=== PATIENT | male | born 1980 | race African-American/Black ===

== ENCOUNTER 2020-08-12 22:28 | Emergency (ER) | payer SELFPAY ==
[~2020-08-12] VITALS: Ht 170.2 cm; Wt 81.0 kg
[2020-08-12 23:13] LABS: BASO % 1 % (0-3); EOS # 0.2 x10^3/uL (0.0-0.7); EOS % 3 % (0-3); HEMATOCRIT 44.8 % (39.0-53.0); HEMOGLOBIN 14.8 g/dL (13.0-17.5); LYMPH % 37 % (24-48); MEAN CORPUSCULAR HEMOGLOBIN 27 pg (25-35); MEAN CORPUSCULAR HGB CONC 33 g/dL (31-37); MEAN CORPUSCULAR VOLUME 82 fL (79-100); MONO % 12 % (0-9); NEUT # 3.7 x10^3uL (1.8-7.7); NEUT % 47 % (31-73); PLATELET COUNT 358 x10^3/uL (140-400); RED BLOOD COUNT 5.46 x10^6/uL (4.30-5.70); RED CELL DISTRIBUTION WIDTH 14.4 % (11.5-14.5); WHITE BLOOD COUNT 7.9 x10^3/uL (4.0-11.0)
--- NOTE | 2020-08-12 23:14 | PHYS DOC ---
Past History Past Medical History: Anxiety, Depression, Schizophrenia Additional Past Medical Histor: Suicidal Ideation Past Surgical History: No Surgical History Smoking: Cigarettes Alcohol Use: Occasionally Drug Use: Cocaine, Marijuana, Methamphetamine General Adult EDM: Chief Complaint: SUICIDAL IDEATION HPI: HPI: 40-year-old male with past medical history of schizophrenia, depression, anxiety and prior suicidal ideation presents via EMS with report of 1 month long history of increased thoughts of wanting to hurt himself. Patient reports he was recently admitted at [facility] for similar thoughts and was started on medications. Patient reports however he was brought to [place] on outstanding warrants for his arrest and ended up serving time in local [facility] correction. Patient reports he is now off of all his medications. Reports he has been self-medicating with illicit drugs including cocaine and methamphetamines as well as abusing alcohol. Patient reports he last used anything 2 days ago. Patient reports he also is experiencing some paranoia in which he thinks people are following him. Patient also reports some auditory hallucinations. Patient reports his thoughts of hurting himself have progressed to the point tonight where he felt concern that he might hurt himself. Patient reports he does not have a specific plan but thinks he "might take out his jugular ". Patient denies known exposure to COVID-19. Review of Systems: Review of Systems: Constitutional: Denies fever or chills Eyes: Denies redness or eye pain HENT: Denies nasal congestion or sore throat Respiratory: Denies cough or shortness of breath Cardiovascular: Denies chest pain or palpitations GI: Denies abdominal pain, nausea, or vomiting : Denies dysuria or hematuria Musculoskeletal: Denies back pain or joint pain Integument: Denies rash or skin lesions Neurologic: Denies headache, focal weakness or sensory changes Complete systems were reviewed and found to be within normal limits, except as documented in this note. Physical Exam: PE: Constitutional: Well developed, well nourished, no acute distress, non-toxic appearance HENT: Normocephalic, atraumatic Eyes: PERRL, EOMI, conjunctiva normal, no discharge, no nystagmus Neck: Normal range of motion, no tenderness, supple Lungs & Thorax: No respiratory distress, equal chest rise and fall Skin: Warm, dry, no erythema, no rash Extremities: No tenderness, ROM intact, no edema Neurologic: Alert and oriented X 3, normal motor function, normal sensory function, no focal deficits noted Psychologic: Affect anxious, reports suicidal ideation with plan, reports auditory hallucinations EKG: EKG: [] Radiology/Procedures: Radiology/Procedures: [] Course & Med Decision Making: Course & Med Decision Making Pertinent Lab studies reviewed. (See chart for details) Patient with possible history of schizophrenia, depression, anxiety and prior suicidal ideation presents with 1 month long history of progressive thoughts of wanting to hurt himself. Patient reports he had been off his medications after being released from correction. Patient reports history of self-medicating with methamphetamines, cocaine, and alcohol. Patient reports last used 2 days ago. Patient neurologically intact. Labs obtained and posted to chart. Patient medically cleared for psychiatric evaluation. Mary from psychiatric assessment team presented to the ER for evaluation. Recommendation for discharge to [facility] for further psychiatric treatment and stabilization. Patient stable for discharge with transfer to [facility]. Discussed findings and plan with patient, who acknowledges understanding and agreement. Lincoln Disclaimer: Lincoln Disclaimer: This electronic medical record was generated, in whole or in part, using a voice recognition dictation system. Departure Departure: Impression: Primary Impression: Suicidal ideation Additional Impression: Paranoid schizophrenia Disposition: 65 DC/TRF TO PSYCH HOSP ([facility]) Condition: STABLE Patient Instructions: Paranoia, Schizophrenia, Suicidal Feelings, How to Help Yourself Additional Instructions: Present directly to [facility] for further psychiatric care and treatment. BRISSA BUENO DO Aug 12, 2020 23:14
[2020-08-12 23:23] LABS: CALCIUM 8.4 mg/dL (8.5-10.1); CREATININE 1.5 mg/dL (0.7-1.3); GFR 51.3; POTASSIUM 3.7 mmol/L (3.5-5.1)
[2020-08-12 23:29] LABS: ALBUMIN 3.4 g/dL (3.4-5.0); ALBUMIN/GLOBULIN RATIO 1.1 (1.0-1.7); MAGNESIUM 2.2 mg/dL (1.8-2.4); TOTAL BILIRUBIN 0.2 mg/dL (0.2-1.0); TOTAL PROTEIN 6.6 g/dL (6.4-8.2)
[2020-08-12 23:31] LABS: ACETAMIN < 2.0 mcg/mL (10-30); ETHANOL < 10 mg/dL (0-10); SALIC < 2.8 mg/dL (2.8-20.0)
[2020-08-13 01:27] VITALS: BP 117/73
== END 2020-08-13 01:27 ==
LOC: ER 22:28
DX: R45.851 Suicidal ideations (principal); F20.0 Paranoid schizophrenia; F41.9 Anxiety disorder, unspecified; F17.210 Nicotine dependence, cigarettes, uncomplicated; F32.9 Major depressive disorder, single episode, unspecified; Z20.822 Contact with and (suspected) exposure to COVID-19
CPT/HCPCS: 36415; 80053; 80329; 83735; 85025; 85610; 85730; 87426; 99285; G0480; U0003; C9803

== ENCOUNTER 2020-09-08 10:23 | Emergency (ER) | payer SELFPAY ==
[~2020-09-08] VITALS: Ht 175.3 cm; Wt 77.5 kg
[2020-09-08] MEDS ORDERED: IV NORMAL SALINE 1,000ML 1,000 ML IV ONE (10:45)
--- NOTE | 2020-09-08 10:59 | PHYS DOC ---
Past History Past Medical History: Anxiety, Depression, Schizophrenia Additional Past Medical Histor: Suicidal Ideation Past Surgical History: No Surgical History Smoking: Cigarettes Alcohol Use: Occasionally Drug Use: Cocaine, Marijuana, Methamphetamine Adult General Chief Complaint Chief Complaint: SUICIDAL IDEATION HPI HPI Patient is a 40m with a known past medical history of anxiety and depression presents emergency department for suicidal ideation. Patient states that last night he was going up as well as on his antidepressants and did not take the rest of his antidepressants. Patient does not know how many but says that he took "enough." States that shortly afterwards he had an episode of vomiting is not sure how much he actually ingested. Patient does not know the actual dosing or strength. Went to see his psychiatrist for a refill today with a centimeter instead. Currently denying any nausea, vomiting, fever, chills, chest pain or shortness of breath. Review of Systems Review of Systems Constitutional: Denies fever or chills [] Eyes: Denies change in visual acuity, redness, or eye pain [] HENT: Denies nasal congestion or sore throat [] Respiratory: Denies cough or shortness of breath [] Cardiovascular: No additional information not addressed in HPI [] GI: Denies abdominal pain, nausea, vomiting, bloody stools or diarrhea [] : Denies dysuria or hematuria [] Musculoskeletal: Denies back pain or joint pain [] Integument: Denies rash or skin lesions [] Neurologic: Denies headache, focal weakness or sensory changes [] Endocrine: Denies polyuria or polydipsia [] All other systems were reviewed and found to be within normal limits, except as documented in this note. Current Medications Current Medications Current Medications Medications (Trade) Dose Ordered Sig/Beto Start Time Stop Time Status Last Admin Dose Admin Lorazepam (Ativan Inj) 1 mg 1X ONCE 09/08/20 10:45 09/08/20 10:46 DC Sodium Chloride 1,000 ml @ 1,000 mls/hr 1X ONCE 09/08/20 10:45 09/08/20 11:44 Allergies Allergies Allergies Coded Allergies Type Severity Reaction Last Updated Verified No Known Allergies Allergy Unknown 08/12/20 Yes Physical Exam Physical Exam Constitutional: Well developed, well nourished, no acute distress, non-toxic appearance. [] HENT: Normocephalic, atraumatic, bilateral external ears normal, oropharynx moist, no oral exudates, nose normal. [] Eyes: PERRLA, EOMI, conjunctiva normal, no discharge. [] Neck: Normal range of motion, no tenderness, supple, no stridor. [] Cardiovascular:Heart rate regular rhythm, no murmur [] Lungs & Thorax: Bilateral breath sounds clear to auscultation [] Abdomen: Bowel sounds normal, soft, no tenderness, no masses, no pulsatile masses. [] Skin: Warm, dry, no erythema, no rash. [] Back: No tenderness, no CVA tenderness. [] Extremities: No tenderness, no cyanosis, no clubbing, ROM intact, no edema. [] Neurologic: Alert and oriented X 3, normal motor function, normal sensory function, no focal deficits noted. [] Psychologic: Affect normal, judgement normal, mood normal. [] EKG EKG [] Radiology/Procedures Radiology/Procedures [] Heart Score Risk Factors: Risk Factors: DM, Current or recent (<one month) smoker, HTN, HLP, family history of CAD, obesity. Risk Scores: Risk Factors: DM, Current or recent (<one month) smoker, HTN, HLP, family history of CAD, obesity. Course & Med Decision Making Course & Med Decision Making Pertinent Labs and Imaging studies reviewed. (See chart for details) 40M presenting with possible medication overdose and suicidal ideation. Will obtain full lab and workup to and if medically clear plan for PAT evaluation. PAt team has evaluated patient and plan for admission to [facility] under [place]. Lincoln Disclaimer Dragon Disclaimer This electronic medical record was generated, in whole or in part, using a voice recognition dictation system. Departure Departure: Impression: Primary Impression: Suicidal ideation Disposition: 01 DC HOME SELF CARE/HOMELESS Condition: GOOD Referrals: PCP,NO (PCP) Patient Instructions: Depression, Adult Additional Instructions: EMERGENCY DEPARTMENT GENERAL DISCHARGE INSTRUCTIONS Thank you for coming to [facility] Emergency Department (ED) today and trusting us with you care. We trust that you had a positive experience in our Emergency Department. If you wish to speak to the department management, you may call the Director at [phone]. YOUR FOLLOW UP INSTRUCTIONS ARE FOLLOWS: 1. Do you have a private Doctor? If you do not have a private doctor, please ask for a resource list of physicians or clinics that may be able to assist you with follow up care. 2. The Emergency Physicain has interpreted your x-rays. The X-Ray specialist will also review them. If there is a change in the findings, you will be notified in 48 hours when at all possible. 3. A lab test or culture has been done, your results will be reviewed and you will be notified if you need a change in treatment. ADDITIONAL INSTRUCTIONS AND INFORMATION: 1. Your care today has been supervised by a physician who is specially trained in emergency care. Many problems require more than one evaluation for a complete diagnosis and treatment. We recommend that you schedule your follow up appointment as recommended to ensure complete treatment of you illness or injury. If you are unable to obtain follow up care and continue to have a problem, or if your condition worsens, we recommend that you return to the ED. 2. We are not able to safely determine your condition over the phone nor are we able to give sound medical advice over the phone. For these safety reasons, if you call for medical advice we will ask you to come to the ED for further evaluation. 3. If you have any questions regarding these discharge instructions please call the ED at [phone]. SAFETY INFORMATION: In the interest of safety, wellness, and injury prevention; we encourage you to wear your sealbelt, if you smoke; quite smoking, and we encourage family to use a protective helmet for bicycling and other sporting events that present an increased risk for head injury. IF YOUR SYMPTOMS WORSEN OR NEW SYMPTOMS DEVELOP, OR YOU HAVE CONCERNS ABOUT YOUR CONDITION; OR IF YOUR CONDITION WORSENS WHILE YOU ARE WAITING FOR YOUR FOLLOW UP APPOINTMENT; EITHER CONTACT YOUR PRIMARY CARE DOCTOR, THE PHYSICIAN WHOSE NAME AND NUMBER YOU WERE GIVEN, OR RETURN TO THE ED IMMEDIATELY. SURJIT AMOS MD Sep 08, 2020 10:59
--- NOTE | 2020-09-08 11:05 | RAD ---
EXAM: CHEST 1 VIEW History: Overdose COMPARISON: None available. TECHNIQUE: Single portable radiograph of the chest FINDINGS: The cardiac silhouette is unremarkable. The lungs are clear bilaterally. The costophrenic sulci are clear and well demarcated. IMPRESSION: No radiographic evidence of an acute cardiopulmonary process. Electronically signed by: Julio Lange MD (09/08/2020 11:03 AM) [id number]
[2020-09-08 11:59] LABS: BASO # 0.1 x10^3/uL (0.0-0.2); BASO % 1 % (0-3); EOS # 0.2 x10^3/uL (0.0-0.7); EOS % 3 % (0-3); HEMATOCRIT 44.5 % (39.0-53.0); HEMOGLOBIN 14.4 g/dL (13.0-17.5); LYMPH # 2.3 x10^3/uL (1.0-4.8); LYMPH % 31 % (24-48); MEAN CORPUSCULAR HEMOGLOBIN 27 pg (25-35); MEAN CORPUSCULAR HGB CONC 33 g/dL (31-37); MEAN CORPUSCULAR VOLUME 84 fL (79-100); MONO # 0.7 x10^3/uL (0.0-1.1); MONO % 10 % (0-9); NEUT # 4.2 x10^3uL (1.8-7.7); NEUT % 56 % (31-73); PLATELET COUNT 417 x10^3/uL (140-400); RED BLOOD COUNT 5.29 x10^6/uL (4.30-5.70); RED CELL DISTRIBUTION WIDTH 14.8 % (11.5-14.5); WHITE BLOOD COUNT 7.5 x10^3/uL (4.0-11.0)
[2020-09-08 12:08] LABS: CALCIUM 8.9 mg/dL (8.5-10.1); CREATININE 1.1 mg/dL (0.7-1.3); GFR 88.8; POTASSIUM 4.6 mmol/L (3.5-5.1)
[2020-09-08 12:14] LABS: MAGNESIUM 2.1 mg/dL (1.8-2.4)
[2020-09-08 12:19] LABS: ACETAMIN < 2.0 mcg/mL (10-30); SALIC < 2.8 mg/dL (2.8-20.0)
--- NOTE | 2020-09-08 12:34 | EKG ---
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
[2020-09-08 14:05] VITALS: BP 153/85
== END 2020-09-08 14:20 | disposition home or self-care (01) ==
LOC: ER 10:23
DX: R45.851 Suicidal ideations (principal); R11.10 Vomiting, unspecified; F20.9 Schizophrenia, unspecified; F41.9 Anxiety disorder, unspecified; F32.9 Major depressive disorder, single episode, unspecified; F17.210 Nicotine dependence, cigarettes, uncomplicated; Z20.822 Contact with and (suspected) exposure to COVID-19
CPT/HCPCS: 36415; 71045; 80048; 80329; 82140; 82550; 83735; 84484; 85025; 85610; 85730; 87426; 93005; 96361; 96374; 99285; C9803; J2060; J7030; U0003; G0480

== ENCOUNTER 2020-10-07 12:20 | Inpatient (IN) | payer SELFPAY ==
[~2020-10-07] VITALS: Ht 175.3 cm; Wt 64.8 kg
--- NOTE | 2020-10-07 12:59 | PHYS DOC ---
Past History Past Medical History: Depression, Other Additional Past Medical Histor: schizophrenia, psychosis (SURJIT AMOS MD) Past Surgical History: No Surgical History (SURJIT AMOS MD) Smoking: Cigarettes Alcohol Use: Occasionally Drug Use: Cocaine, Marijuana, Methamphetamine (SURJIT AMOS MD) Adult General Chief Complaint Chief Complaint: OVERDOSE HPI HPI Patient is a 40-year-old male presenting the emergency department concern for suicide attempt after attempted overdose and toxic ingestion. 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 This call apparently occurred at approxi mately 9 AM and EMS arrived and noted the patient was somnolent and alert and oriented x1. On my evaluation the patient is alert and oriented x2 and will intermittently states having nausea but repeatedly states that "I am fine I just want to go." After repeated questioning patient thinks that he woke up around 9:00 and thinks he took pills since that time. Patient does state he has been throwing up since then. Patient cannot tell me how much he took but does have 4 empty bottles of medications which includes 2 of 50 mg of sertraline, one of the 10 mg olanzapine and 1 of 10 mg aripiprazole. Denies any recent illness or fevers. (SURJIT AMOS MD) Review of Systems Review of Systems Constitutional: Denies fever or chills [] Eyes: Denies change in visual acuity, redness, or eye pain [] HENT: Denies nasal congestion or sore throat [] Respiratory: Denies cough or shortness of breath [] Cardiovascular: No additional information not addressed in HPI [] GI: Denies abdominal pain, nausea, vomiting, bloody stools or diarrhea [] : Denies dysuria or hematuria [] Musculoskeletal: Denies back pain or joint pain [] Integument: Denies rash or skin lesions [] Neurologic: Denies headache, focal weakness or sensory changes [] Endocrine: Denies polyuria or polydipsia [] All other systems were reviewed and found to be within normal limits, except as documented in this note. (SURJIT AMOS MD) Current Medications Current Medications Current Medications Medications (Trade) Dose Ordered Sig/Beto Start Time Stop Time Status Last Admin Dose Admin Lorazepam (Ativan Inj) 2 mg 1X ONCE 10/07/20 13:00 10/07/20 13:01 UNV Morphine Sulfate (Morphine 4mg Syringe) 4 mg 1X ONCE 10/07/20 13:00 10/07/20 13:01 UNV Ondansetron HCl (Zofran) 4 mg 1X ONCE 10/07/20 13:00 10/07/20 13:01 UNV Polyethylene Glycol (miraLAX) 17 gm 1X ONCE 10/07/20 13:00 10/07/20 13:01 UNV (SURJIT AMOS MD) Allergies Allergies Allergies Coded Allergies Type Severity Reaction Last Updated Verified No Known Allergies Allergy Unknown 08/12/20 Yes (SURJIT AMOS MD) Physical Exam Physical Exam Constitutional: Well developed, well nourished, no acute distress, non-toxic appearance. [] HENT: Normocephalic, atraumatic, bilateral external ears normal, oropharynx moist, no oral exudates, nose normal. [] Eyes: PERRLA, EOMI, conjunctiva normal, no discharge. [] Neck: Normal range of motion, no tenderness, supple, no stridor. [] Cardiovascular:Heart rate regular rhythm, no murmur [] Lungs & Thorax: Bilateral breath sounds clear to auscultation [] Abdomen: Bowel sounds normal, soft, no tenderness, no masses, no pulsatile masses. [] Skin: Warm, dry, no erythema, no rash. [] Back: No tenderness, no CVA tenderness. [] Extremities: No tenderness, no cyanosis, no clubbing, ROM intact, no edema. [] Neurologic: Alert and oriented X 3, normal motor function, normal sensory function, no focal deficits noted. [] Psychologic: Affect normal, judgement normal, mood normal. [] (SURJIT AMOS MD) Current Patient Data Vital Signs Vital Signs Date Time Temp Pulse Resp B/P (MAP) Pulse Ox O2 Delivery O2 Flow Rate FiO2 10/07/20 12:25 83 16 149/94 (112) 99 Room Air (SURJIT AMOS MD) EKG EKG [] (SURJIT AMOS MD) Radiology/Procedures Radiology/Procedures [] (SURJIT AMOS MD) Heart Score C/O Chest Pain: No Risk Factors: Risk Factors: DM, Current or recent (<one month) smoker, HTN, HLP, family history of CAD, obesity. Risk Scores: Risk Factors: DM, Current or recent (<one month) smoker, HTN, HLP, family history of CAD, obesity. (SURJIT AMOS MD) Course & Med Decision Making Course & Med Decision Making Pertinent Labs and Imaging studies reviewed. (See chart for details) 40m presented emergency department with what appears to be toxic ingestion concerning for serious overdose most concerning is a large ingestion of SSRIs. We believe that this is been done within 4 hours. Activated charcoal is no longer effective at this time however given that it happened within 4 hours and these are long lasting medications we will proceed with whole bowel irrigation. Patient also to receive IV fluids, benzos and full labs to be obtained. Patient currently stable at this time. 17:22 -patient still remains mildly somnolent but is having slightly improving mental status. Although irrigation was initiated patient has not had a bowel movement yet does be tolerating well. Labs reviewed and without any significant derangements. In addition EKG without any significant findings or QRS widening. At this time based on recommendations from poison control waiting for patient be asymptomatic and then another 6 hours before he can be medically cleared. PET team evaluation has been completed and patient will require inpatient psychiatric services. At this time will hold patient into the ER until he is medically cleared. (SURJIT AMOS MD) Course & Med Decision Making I assumed care of patient after comprehensive signout by off going physician. I reviewed entirety of medical work-up thus far. I saw patient and repeated certain aspects of history and physical exam, remains somnolent. I contacted Dr. Vasquez, hospitalist at [facility] and discussed need for admission for continued supportive care until patient metabolizes ingested SSRI and is medically cleared for inpatient psychiatric transfer due to purposeful OD attempt, Dr. Vasquez accepted patient under his care (LUDWIN HENRY DO) Dragon Disclaimer Dragon Disclaimer This electronic medical record was generated, in whole or in part, using a voice recognition dictation system. (SURJIT AMOS MD) Departure Departure: Impression: Primary Impression: Intentional SSRI (selective serotonin reuptake inhibitor) overdose Disposition: 09 ADMITTED INPT THIS HOSP Admitting Physician: Chandana Vasquez (LUDWIN HENRY DO) Condition: STABLE Referrals: PCP,NO (PCP) SURJIT AMOS MD Oct 07, 2020 12:59 LUDWIN HENRY 24, 2021 05:42
[2020-10-07] MEDS ORDERED: IV NORMAL SALINE 1,000ML 1,000 ML IV ONE (13:00)
[2020-10-07] MEDS ORDERED: MORPHINE SULFATE 4 MG/ML DISP.SYRIN. IV ONE (13:00)
[2020-10-07] MEDS ORDERED: ONDANSETRON PF 4 MG/2 ML VIAL. IVP ONE (13:00)
[2020-10-07] MEDS ORDERED: POLYETHYLENE GLYCOL 3350 17 GM PACKET. PO ONE (13:00)
[2020-10-07 13:09] LABS: BASO # 0.1 x10^3/uL (0.0-0.2); BASO % 1 % (0-3); EOS % 0 % (0-3); HEMOGLOBIN 15.2 g/dL (13.0-17.5); LYMPH # 1.4 x10^3/uL (1.0-4.8); LYMPH % 13 % (24-48); MEAN CORPUSCULAR HEMOGLOBIN 27 pg (25-35); MEAN CORPUSCULAR HGB CONC 32 g/dL (31-37); MEAN CORPUSCULAR VOLUME 84 fL (79-100); MONO # 0.8 x10^3/uL (0.0-1.1); MONO % 7 % (0-9); NEUT # 8.3 x10^3uL (1.8-7.7); NEUT % 79 % (31-73); PLATELET COUNT 420 x10^3/uL (140-400); RED BLOOD COUNT 5.62 x10^6/uL (4.30-5.70); RED CELL DISTRIBUTION WIDTH 14.2 % (11.5-14.5); WHITE BLOOD COUNT 10.5 x10^3/uL (4.0-11.0)
--- NOTE | 2020-10-07 13:09 | RAD ---
AP chest. HISTORY: Altered mental status AP view was taken of the chest. Lungs are clear. Heart is normal in size. There is no pleural effusio n. IMPRESSION: 1. No acute chest disease. Electronically signed by: Lorne Stuart MD (10/07/2020 1:06 PM) [facility]
[2020-10-07 13:12] LABS: CALCIUM 9.8 mg/dL (8.5-10.1); CREATININE 1.2 mg/dL (0.7-1.3); GFR 80.3; POTASSIUM 3.9 mmol/L (3.5-5.1)
[2020-10-07 13:17] LABS: ACETAMIN < 2.0 mcg/mL (10-30); ETHANOL < 10 mg/dL (0-10); SALIC < 2.8 mg/dL (2.8-20.0)
[2020-10-07 13:18] LABS: MAGNESIUM 2.1 mg/dL (1.8-2.4)
--- NOTE | 2020-10-07 13:51 | EKG ---
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
[2020-10-07 15:20] LABS: BARBITURATES NEG (NEG); BENZODIAZEPINES NEG (NEG); CANNABINOIDS NEG (NEG); COCAINE POS (NEG); METHADONE NEG (NEG); OPIATES POS (NEG); PHENCYCLIDINE NEG (NEG)
[2020-10-07 15:27] LABS: AMPHETAMINE/METHAMPHETAMINE NEG (NEG)
[2020-10-07 15:44] LABS: BACTERIA,URINE 0 /HPF (0-FEW); BILIRUBIN,URINE NEG (NEG); CLARITY,URINE CLEAR; COLOR,URINE YELLOW; GLUCOSE,URINE NEG (NEG); NITRITE,URINE NEG (NEG); RBC,URINE RARE /HPF (0-2); SQUAMOUS EPITHELIAL CELL,UR OCC /LPF; UROBILINOGEN,URINE 0.2 mg/dL (0.2 mg/dL); WBC,URINE 0 /HPF (0-4)
[2020-10-07 20:47] VITALS: BP 133/85
[2020-10-08] MEDS ORDERED: ARIP10TA9 PO (02:29)
[2020-10-08] MEDS ORDERED: OLAN10TA9 PO (02:29)
[2020-10-08] MEDS ORDERED: SERT-268 PO (02:29)
[2020-10-08 05:37] VITALS: BP 123/79
[2020-10-08 08:20] VITALS: BP 128/78
[2020-10-08 11:00] VITALS: BP 124/74
--- NOTE | 2020-10-08 14:58 | SSS ---
ADMIT DATE: HISTORY OF PRESENT ILLNESS: The patient is a 40-year-old -Burm[place] male patient who presented to the Emergency Room with concern for suicidal attempt after an attempted overdose and toxic ingestion. 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 This call apparently occurred at approximately 9:00 a.m. and an EMS arrived and noted the patient was somnolent and alert and oriented x1. When he was evaluated by the ER physician, the patient was alert and oriented x 2 and will intermittently state having nausea, but repeatedly states "I'm fine, I just want to go." After repeated questioning, the patient thinks that he woke up around 9-10, thinks he took pills since that time. The patient does state that he has been throwing up since then, He could not tell how much he took, but does have 4 empty bottles of medication, which included two of 50 mg sertraline, one of 10 mg olanzapine, and one of 10 mg aripiprazole. He was extensively evaluated in the Emergency Room and has had lab work that was mostly unremarkable. His toxic screen was positive for opiates and cocaine and he was admitted with intentional selective serotonin reuptake inhibitors. We basically consulted the PAT team for evaluation and initially they recommended inpatient psychiatric services. PAST MEDICAL HISTORY: Significant for schizophrenia, depression, and anxiety. PAST SURGICAL HISTORY: Unremarkable. FAMILY HISTORY: Noncontributory. SOCIAL HISTORY: He lives alone in an apartment. He continues to smoke cigarette. Drinks alcohol occasionally. Continues to abuse cocaine, marijuana, and methamphetamine. ALLERGIES: He has no known drug allergies. MEDICATIONS: He is currently on following medications: He is on sertraline 50 mg p.o. at bedtime, aripiprazole 10 mg daily, and olanzapine 10 mg daily. PHYSICAL EXAMINATION: GENERAL: On arrival to the Emergency Room, he looked well and was clearly in no apparent respiratory distress. No pallor, jaundice, cyanosis, or thyromegaly. No jugular venous distention, no limb edema. VITAL SIGNS: His heart rate was 83, blood pressure was 149/94, his temperature was 97.5, respiratory rate was 16, and oxygen saturation was 99% on room air. HEAD, EYES, EARS, NOSE AND THROAT: Showed normocephalic, atraumatic. NECK: Supple. HEART: Showed normal first and second heart sounds. No gallop, rub, or murmur. CHEST: Clear to auscultation. No crepitation or rhonchi. ABDOMEN: Distended, soft, nontender. No guarding or rigidity. No organomegaly. All hernial orifices intact. Bowel sounds normal. NEUROLOGIC: He was grossly intact. LABORATORY DATA: his lab work on admission showed a white cell count of 10,500, hemoglobin 15, hematocrit 47, MCV 84, and platelet count of 120,000 with normal manual differential. His prothrombin time was 10.5, INR 1, aPTT was 24. Chemistry showed a serum sodium 139, potassium 3.9, chloride 102, bicarbonate 28, anion gap of 9, BUN 13, creatinine 1.2, estimated GFR was 80 mL per minute. His glucose was 90, calcium was 9.8, and magnesium was 2.1. CK was 273 and troponin was less than 0.017. His urinalysis showed the urine was yellow, clear with a pH of 6.5, specific gravity 1.015. The urine was negative for protein, glucose, blood, nitrite, and leukocyte esterase. There are no rbc's, no wbc's, and no bacteria. His chest x-ray showed no acute chest disease. ASSESSMENT AND PLAN: The patient was observed overnight, was evaluated again by the PAT team, and basically they have a safety plan for him and they recommended that the patient can be safely discharged home. He has an appointment at [facility] on 10/21/2020. FINAL DISCHARGE DIAGNOSES: Suicidal attempt and overdose on SSRI. Other medical problems include schizophrenia, depression, and anxiety. PLAN: My plan is to write a prescription enough for him to last until the 10/22/2019 and that he cannot overdose. BRAVO GALLOWAY MD DR: JOSHUA/rohini JOB#: [id number] / [id number]
== END 2020-10-08 14:10 | disposition home or self-care (01) | DRG 918 ==
LOC: ER 12:20 → 1 SOUTH 19:27
PROVIDERS: ADMIT Hospitalist; ATTEND Hospitalist
DX: T43.222A Poisoning by selective serotonin reuptake inhibitors, intentional self-harm, initial encounter (principal); F20.9 Schizophrenia, unspecified; F32.9 Major depressive disorder, single episode, unspecified; F41.9 Anxiety disorder, unspecified; F17.210 Nicotine dependence, cigarettes, uncomplicated; Z20.822 Contact with and (suspected) exposure to COVID-19; Y92.89 Other specified places as the place of occurrence of the external cause
CPT/HCPCS: 36415; 71045; 80048; 80307; 80329; 81001; 82550; 83735; 84484; 85025; 85610; 85730; 93005; 96361; 96374; 96375; 99406; G0480; J2060; J2270; J2405; U0003; 99285-25; J7030

== ENCOUNTER 2021-02-05 01:50 | Emergency (ER) | payer SELFPAY ==
[~2021-02-05] VITALS: Ht 177.8 cm; Wt 72.3 kg
[~2021-02-05 01:50] MED LIST: ARIP10TA9 PO; OLAN10TA69 PO; SERT-268 PO
--- NOTE | 2021-02-05 01:53 | PHYS DOC ---
Past History Past Medical History: Depression, Other Additional Past Medical Histor: schizophrenia, psychosis Past Surgical History: No Surgical History Smoking: Cigarettes Alcohol Use: Occasionally Drug Use: Cocaine, Marijuana, Methamphetamine General Adult HPI: HPI: ".. I having more thoughts of killing myself.. and depression is worse. .. I am seeing things.. shadows.. no voices. I am having paranoid thoughts..." Patient is a 41 year old male who presents with above hx and complaints of suicidal ideation. He is not established to confirm plan of how to kill himself . Reports increased paranoid thoughts. Seeing shadows of the things not there. No recent travel. No recent drug use. No specific ill contacts. Has follow- up at the counseling center in the past. Has had multiple admissions to psychiatric centers for schizophrenia, depression, anxiety, and for suicidal ideation. Has had history of polysubstance abuse in the past. Does smoke tobacco. Does occasionally drink alcohol. Has been known to use cocaine and marijuana and methamphetamine in the past. Patient denies any current use of drugs tonight. Patient has had problems with insomnia in the past. In the past he has been on Sertraline 50 at night and on Aripiprazole `10mg and olanzapine 10 daily for control of his schizophrenia symptoms. Pt. last hospital admit was 10/07/2020 here for over dose of his psych. meds. Pt. has not gotten a COVID vaccinations. Review of Systems: Review of Systems: Constitutional: Denies fever or chills Eyes: Denies change in visual acuity HENT: Denies nasal congestion or sore throat Respiratory: Denies cough or shortness of breath Cardiovascular: Denies chest pain or edema GI: Denies abdominal pain, nausea, vomiting, bloody stools or diarrhea : Denies dysuria Musculoskeletal: Denies back pain or joint pain Integument: Denies rash Neurologic: Denies headache, focal weakness or sensory changes Endocrine: Denies polyuria or polydipsia Lymphatic: Denies swollen glands Psychiatric: Complains of depression or anxiety Family History: Family History: Noncontributory Current Medications: Current Meds: See nursing for home meds Allergies: Allergies: Allergies Coded Allergies Type Severity Reaction Last Updated Verified No Known Allergies Allergy Unknown 08/12/20 Yes Physical Exam: PE: Constitutional: Well developed, well nourished,moderate acute emotional distress, non-toxic appearance. [] HENT: Normocephalic, atraumatic, bilateral external ears normal, oropharynx moist, no oral exudates, nose normal. [] Eyes: PERRLA, EOMI, conjunctiva normal, no discharge. [] Neck: Normal range of motion, no tenderness, supple, no stridor. [] Cardiovascular:Heart rate regular rhythm, no murmur [] Lungs & Thorax: Bilateral breath sounds equal at apex on auscultation []Did have some scattered wheezes. Abdomen: Bowel sounds normal, soft, no tenderness, no masses, no pulsatile masses. [] Skin: Warm, dry, no erythema, no rash. [] Back: No tenderness, no CVA tenderness. [] Extremities: No tenderness, no cyanosis, no clubbing, ROM intact, no edema. [] Neurologic: Alert and oriented X 3, normal motor function, normal sensory fun ction, no focal deficits noted. [] Psychologic: Affect anxious, , judgement normal, mood depressed. Report paranoid thoughts and suicidal thoughts. EKG: EKG: My interpretation EKG shows a sinus rhythm at 88 bpm. No acute morphology. Time of EKG 205 hours [] Radiology/Procedures: Radiology/Procedures: [] Heart Score: C/O Chest Pain: No HEART Score for Chest Pain: HEART Score for Chest Pain Response (Comments) Value History Slighlty/Non-Suspicious 0 ECG Normal 0 Age < 45 0 Risk Factors No Risk Factors 0 Total 0 Risk Factors: Risk Factors: DM, Current or recent (<one month) smoker, HTN, HLP, family history of CAD, obesity. Risk Scores: Score 0 - 3: 2.5% MACE over next 6 weeks - Discharge Home Score 4 - 6: 20.3% MACE over next 6 weeks - Admit for Clinical Observation Score 7 - 10: 72.7% MACE over next 6 weeks - Early Invasive Strategies Course & Med Decision Making: Course & Med Decision Making Pertinent Labs and Imaging studies reviewed. (See chart for details) See STEFFI diop. Pt. afte observation in ED elected to follow up at Counseling center. Pt. refusing admit at this time. Has no specific plan for suicide. Will return if his suicidal ideation becomes more persistent. Pt. encourage to return at any time. Pt. give RSI follow up. Impression: 1. Depression 2. Schizophrenia 3. Suicidal ideation [] Lincoln Disclaimer: Lincoln Disclaimer: This electronic medical record was generated, in whole or in part, using a voice recognition dictation system. Departure Departure: Referrals: PCP,JAZMINE (PCP) RON MCCLELLAND MD Feb 05, 2021 01:53
[2021-02-05 02:00] VITALS: BP 146/90
--- NOTE | 2021-02-05 02:53 | RAD ---
XR CHEST 1V INDICATION: copd . COMPARISON STUDY: None. FINDINGS: Lungs: Normal lung volume. No pulmonary mass or consolidation. The tracheobronchial tree and hilar st ructures are normal. Pleura: No pleural effusion or pneumothorax. Heart and Mediastinum: The cardiomediastinal silhouette is normal. The great vessels of the thorax ar e normal. Bones and Soft Tissues: The bones and soft tissues are within normal limits. IMPRESSION: No acute cardiopulmonary process. Electronically signed by: Johnnie Silverman MD (02/05/2021 2:51 AM) [facility]
[2021-02-05 03:06] LABS: BASO # 0.1 x10^3/uL (0.0-0.2); BASO % 1 % (0-3); EOS # 0.2 x10^3/uL (0.0-0.7); EOS % 3 % (0-3); HEMOGLOBIN 15.5 g/dL (13.0-17.5); LYMPH # 3.2 x10^3/uL (1.0-4.8); LYMPH % 33 % (24-48); MEAN CORPUSCULAR HEMOGLOBIN 28 pg (25-35); MEAN CORPUSCULAR HGB CONC 33 g/dL (31-37); MEAN CORPUSCULAR VOLUME 84 fL (79-100); MONO % 11 % (0-9); NEUT # 5.2 x10^3uL (1.8-7.7); NEUT % 53 % (31-73); PLATELET COUNT 389 x10^3/uL (140-400); RED BLOOD COUNT 5.57 x10^6/uL (4.30-5.70); RED CELL DISTRIBUTION WIDTH 13.9 % (11.5-14.5); WHITE BLOOD COUNT 9.8 x10^3/uL (4.0-11.0)
[2021-02-05 03:13] LABS: BACTERIA,URINE 0 /HPF (0-FEW); BILIRUBIN,URINE NEG (NEG); CLARITY,URINE CLEAR; COLOR,URINE YELLOW; GLUCOSE,URINE NEG (NEG); NITRITE,URINE NEG (NEG); RBC,URINE 0 /HPF (0-2); SQUAMOUS EPITHELIAL CELL,UR OCC /LPF; UROBILINOGEN,URINE 0.2 mg/dL (0.2 mg/dL); WBC,URINE OCC /HPF (0-4)
[2021-02-05 03:29] LABS: BARBITURATES NEG (NEG); BENZODIAZEPINES NEG (NEG); CANNABINOIDS NEG (NEG); COCAINE NEG (NEG); METHADONE NEG (NEG); OPIATES NEG (NEG); PHENCYCLIDINE NEG (NEG)
[2021-02-05 03:33] LABS: AMPHETAMINE/METHAMPHETAMINE NEG (NEG)
[2021-02-05 03:36] LABS: CALCIUM 8.8 mg/dL (8.5-10.1); CREATININE 1.2 mg/dL (0.7-1.3); POTASSIUM 4.1 mmol/L (3.5-5.1)
[2021-02-05 03:49] LABS: DIRECT BILIRUBIN 0.1 mg/dL (0.0-0.2); TOTAL BILIRUBIN 0.2 mg/dL (0.2-1.0); TOTAL PROTEIN 7.3 g/dL (6.4-8.2)
[2021-02-05 03:50] LABS: ETHANOL < 10 mg/dL (0-10); SALIC < 2.8 mg/dL (2.8-20.0)
[2021-02-05 03:51] LABS: ACETAMIN < 2.0 mcg/mL (10-30)
--- NOTE | 2021-02-05 07:11 | EKG ---
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
--- NOTE | 2021-02-05 07:12 | EKG ---
[address] [address] Test Date: 2021-02-05 Test Time: 02:57:25 Pat Name: SAYDA RUDD Department: Room: Gender: M Director Money: ANDREA : 1980 Requested By: RON MCCLELLAND Order Number: [id number] Reading MD: Measurements Intervals [place] Rate: 79 P: 73 GA: 140 QRS: 62 QRSD: 82 T: 64 QT: 330 QTc: 379 Interpretive Statements SINUS RHYTHM OTHERWISE NORMAL ECG RI6.02 Compared to ECG 02/05/2021 02:05:17 No significant changes
== END 2021-02-05 05:30 | disposition left against medical advice (07) ==
LOC: ER 01:50
DX: R45.851 Suicidal ideations (principal); F32.9 Major depressive disorder, single episode, unspecified; F20.9 Schizophrenia, unspecified; F17.210 Nicotine dependence, cigarettes, uncomplicated; F12.10 Cannabis abuse, uncomplicated; F15.10 Other stimulant abuse, uncomplicated; F14.10 Cocaine abuse, uncomplicated; Z20.822 Contact with and (suspected) exposure to COVID-19
CPT/HCPCS: 36415; 71045; 80048; 80076; 80307; 80329; 81001; 82550; 83735; 83880; 84443; 84484; 85025; 87426; 93005; 99285; C9803; G0480; U0003

== ENCOUNTER 2021-08-11 14:52 | Emergency (ER) | payer SELFPAY ==
[~2021-08-11] VITALS: Ht 177.8 cm; Wt 72.3 kg
--- NOTE | 2021-08-11 15:19 | EKG ---
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
--- NOTE | 2021-08-11 15:29 | PHYS DOC ---
Past History Past Medical History: Depression, Other Additional Past Medical Histor: schizophrenia, psychosis, PTSD (BRISSA FLOOD APRN) Past Surgical History: No Surgical History (BRISSA FLOOD APRN) Smoking: Cigarettes Alcohol Use: None Additional Alcohol Information: unknown Drug Use: Cocaine, Marijuana, Methamphetamine Social History Narrative: unknown (BRISSA FLOOD APRN) Adult General Chief Complaint Chief Complaint: ALTERED MENTAL STATUS HPI HPI Limited HPI related to patient presentation Patient is a 41-year-old male who presents to the emergency department via EMS, EMS reports patient was acting strange at a bus stop, concerned citizens thought he might be cold and called 911, patient had verbal altercation with PD, PD asked paramedics to transport to emergency department, patient became belligerent with client consultant Per client consultant report, client consultant reports patient was given 10 mg of Versed intranasally, patient then calmed down and fell asleep in route. Patient is currently asleep, easy to arouse but makes incomprehensible sounds, (BRISSA FLOOD APRN) Review of Systems Review of Systems Limited ROS, patient was treated with Versed by transferring client consultant for being belligerent on scene. (BRISSA FLOOD APRN) Allergies Allergies Allergies Coded Allergies Type Severity Reaction Last Updated Verified No Known Allergies Allergy Unknown 02/05/21 Yes (RBISSA FOLOD APRN) Physical Exam Physical Exam Constitutional: Well developed, well nourished, no acute distress, non-toxic appearance. Patient is asleep during physical examination, was given 10 mg of intranasal Versed in route for being belligerent towards transporting client consultant. HENT: Normocephalic, atraumatic. Eyes: Conjunctiva normal, no discharge. Pupils 1 mm and reactive to light bilat erally. Neck: Normal range of motion, no stridor. Cardiovascular: No cyanosis appreciated, distal cap refill less than 2 seconds. Lungs & Thorax: Patient is in no respiratory distress, no audible adventitious lung sounds appreciated. Lung sounds clear to auscultation all lung casas. Abdomen: Nontender, no abnormalities noted. Skin: Warm, dry, no erythema, no rash. Back: No tenderness, no deformities. Extremities: No tenderness, no cyanosis, no clubbing, ROM intact, no edema. Neurologic: Patient is not alert during initial evaluation. Psychologic: Patient is not alert during initial evaluation. (BRISSA FLOOD APRN) Current Patient Data Vital Signs Vital Signs Date Time Temp Pulse Resp B/P (MAP) Pulse Ox O2 Delivery O2 Flow Rate FiO2 08/11/21 15:09 98.8 91 16 146/90 (108) 100 Room Air (BRISSA FLOOD APRN) EKG EKG EKG performed at fifteen eleven by ED nursing staff shows a normal sinus rhythm without other ectopy, heart rate 87 bpm, parable 0.126, QTc interval 0.431, no acute STEMI, no ACS, no acute ischemia appreciated, EKG interpreted by ED attending physician Dr. Henry. (BRISSA FLOOD APRN) Radiology/Procedures Radiology/Procedures STATUS: REG ER ORD. PHYSICIAN: BRISSA FLOOD APRN REASON: Altered mental status PROCEDURE: CHEST AP ONLY EXAM: Chest, single view. HISTORY: Altered mental status. COMPARISON: 02/05/2021. FINDINGS: A frontal view of the chest is obtained. There is no infiltrate, pleural effusion or pneumothorax. The heart is normal in size. IMPRESSION: No acute pulmonary finding. Electronically signed by: Scarlet Patiño MD (08/11/2021 3:53 PM) [id number] STATUS: REG ER ORD. PHYSICIAN: BRISSA FLOOD APRN REASON: Altered mental status PROCEDURE: CT HEAD WO CONTRAST EXAM: Head CT without contrast. HISTORY: Altered mental status. TECHNIQUE: Computed tomographic images of the head were obtained without contrast. *One or more of the following individualized dose reduction techniques were utilized for this examination: 1. Automated exposure control. 2. Adjustment of the mA and/or kV according to patient size. 3. Use of iterative reconstruction technique. COMPARISON: None. FINDINGS: There is no acute or subacute extra-axial or intraparenchymal hemorrhage. There is no mass effect or midline shift. There is no hydrocephalus. The lee-white matter differentiation pattern is intact. The visualized portions of the orbits, paranasal sinuses and mastoid air cells are unremarkable. No suspicious calvarial lesion is seen. IMPRESSION: No acute intracranial finding. Note is made that MRI is more sensitive for acute infarction. Electronically signed by: Scarlet Patiño MD (08/11/2021 3:51 PM) [id number] (BRISSA FLOOD APRN) Heart Score C/O Chest Pain: No Risk Factors: Risk Factors: DM, Current or recent (<one month) smoker, HTN, HLP, family history of CAD, obesity. Risk Scores: Risk Factors: DM, Current or recent (<one month) smoker, HTN, HLP, family history of CAD, obesity. (BRISSA FLOOD APRN) Course & Med Decision Making Course & Med Decision Making Pertinent Labs and Imaging studies reviewed. (See chart for details) 41-year-old male, vital signs reviewed, presents emergency department for acting belligerent during transport to emergency department. Patient was given 10 mg of Versed intranasally in route. Patient presents asleep, is arousable, is maintaining airway, vital signs are within normal limits, patient is in no respiratory distress, 100% oxygen saturation, however patient making incomprehensible sounds. Suspicious for illicit drug use, will order CT head, CBC, CMP, urine drug screen, alcohol level. CT head unremarkable, CBC white blood cell count slightly elevated 14,000, other CBC and CMP unremarkable, patient's urine drug screen positive for benzod iazepines, methamphetamines, cocaine, marijuana. Patient is negative for EtOH. We will continue to monitor patient, patient makes appropriate movements when aroused. After period of time, patient is awake, states he is ready to go home, states that he did use cocaine today and believes it may have been laced with something else. Discussed with patient cessation of illicit drug use, patient reports he also smokes cigarettes, does drink alcohol but has not drank alcohol today. Patient wishes to go home. Will discharge patient to home. Patient denies homicidal or suicidal ideations. Discussed with the patient all findings and diagnostic testing as well as the need to follow-up with their primary care provider for further evaluation and treatment or return to the ED if any new or worsening symptoms. Strict return precautions were also discussed at length, the patient voiced understanding and agreement with the discharge planning. The patient was nontoxic in appearance, in no apparent distress, and hemodynamically stable at the time of disposition. (BRISSA FLOOD APRN) Course & Med Decision Making I was the Attending physician on the above date of service of this patient. This patient was evaluated, examined, treated, and dispositioned from the emergency department by the mid-level practitioner. I personally saw patient after reviewing ER work-up and repeated certain aspects of history and physical exam. Patient's presentation today consistent with polysubstance abuse in absence of any obvious trauma. No indication for further diagnostic work-up and/or need for hospitalization. Patient denies any SI/HI and requesting discharge home Electronically signed, Ludwin Henry DO (LUDWIN HENRY DO) Lincoln Disclaimer Lincoln Disclaimer This electronic medical record was generated, in whole or in part, using a voice recognition dictation system. (BRISSA FLOOD APRN) Departure Departure: Impression: Primary Impression: Drug abuse Disposition: HOME / SELF CARE / HOMELESS Condition: GOOD Referrals: PCP,NO (PCP) Patient Instructions: Drug Abuse and Addiction-[facility] Additional Instructions: You are seen today in the emergency department for acting abnormally in public, you are transported here by paramedics, in route you became belligerent with client consultant and were ultimately given a medication called Versed to help calm you down for safety reasons during transfer. Upon your presentation you were very sleepy, a CT scan was performed that did not show any concerning findings, your urine drug screen did show your positive for benzodiazepines, methamphetamines, cocaine, and marijuana. Please stop using illicit drugs. Thank you for visiting our Emergency Department. It was a pleasure taking care of you today in the emergency department and we appreciate you trusting us with your care. If any additional problems come up don't hesitate to return to visit us. Please follow up with your primary care provider so they can plan additional care if needed and know about the problem that you had. If symptoms worsen come back to the Emergency Department. Any concerning symptoms that start such as chest pain, shortness of air, weakness or numbness on one side of the body, running high fevers or any other concerning symptoms return to the ER. EMERGENCY DEPARTMENT GENERAL DISCHARGE INSTRUCTIONS Thank you for coming to [facility] (ED) today and trusting us with you care. We trust that you had a positivie experience in our Emergency Department. If you wish to speak to the department management, you may call the director at [phone]. YOUR FOLLOW UP INSTRUCTIONS ARE FOLLOWS: 1. Do you have a private Doctor? If you do not have a private doctor, please ask for a resource list of physicians or clinics that may be able to assist you with follow up care. 2. The Emergency Physician has interpreted your x-rays. The X-Ray specialist will also review them. If there is a change in the findings, you will be notified in 48 hours when at all possible. 3. A lab test or culture has been done, your results will be reviewed and you will be notified if you need a change in treatment. ADDITIONAL INSTRUCTIONS AND INFORMATION: 1. Your care today has been supervised by a physician who is specially trained in emergency care. Many problems require more than one evaluation for a complete diagnosis and treatment. We recommend that you schedule your follow up appointment as recommended to ensure complete treatment of you illness or injury. If you are unable to obtain follow up care and continue to have a problem, or if your condition worsens, we recommend that you return to the ED. 2. We are not able to safely determine your condition over the phone nor are we able to give sound medical advice over the phone. For these safety reasons, if you call for medical advice we will ask you to come to the ED for further evaluation. 3. If you have any questions regarding these discharge instructions please call the ED at [phone]. SAFETY INFORMATION: In the interest of safety, wellness, and injury prevention; we encourage you to wear your sealbelt, if you smoke; quite smoking, and we encourage family to use a protective helmet for bicycling and other sporting events that present an increased risk for head injury. IF YOUR SYMPTOMS WORSEN OR NEW SYMPTOMS DEVELOP, OR YOU HAVE CONCERNS ABOUT YOUR CONDITION; OR IF YOUR CONDITION WORSENS WHILE YOU ARE WAITING FOR YOUR FOLLOW UP APPOINTMENT; EITHER CONTACT YOUR PRIMARY CARE DOCTOR, THE PHYSICIAN WHOSE NAME AND NUMBER YOU WERE GIVEN, OR RETURN TO THE ED IMMEDIATELY. BRISSA FLOOD APRN Aug 11, 2021 15:29 LUDWIN HENRY DO Aug 12, 2021 06:40
--- NOTE | 2021-08-11 15:53 | RAD ---
EXAM: Head CT without contrast. HISTORY: Altered mental status. TECHNIQUE: Computed tomographic images of the head were obtained without contrast. *One or more of the following individualized dose reduction techniques were utilized for this examina tion: 1. Automated exposure control. 2. Adjustment of the mA and/or kV according to patient size. 3. Use of iterative reconstruction technique. COMPARISON: None. FINDINGS: There is no acute or subacute extra-axial or intraparenchymal hemorrhage. There is no mass effect or midline shift. There is no hydrocephalus. The lee-white matter differentiation pattern is intact. The visualized portions of the orbits, paranasal sinuses and mastoid air cells are unremarkable. No s uspicious calvarial lesion is seen. IMPRESSION: No acute intracranial finding. Note is made that MRI is more sensitive for acute infarcti on. Electronically signed by: Scarlet Patiño MD (08/11/2021 3:51 PM) [id number]
--- NOTE | 2021-08-11 15:55 | RAD ---
EXAM: Chest, single view. HISTORY: Altered mental status. COMPARISON: 02/05/2021. FINDINGS: A frontal view of the chest is obtained. There is no infiltrate, pleural effusion or pneumo thorax. The heart is normal in size. IMPRESSION: No acute pulmonary finding. Electronically signed by: Scarlet Patiño MD (08/11/2021 3:53 PM) [id number]
[2021-08-11 16:16] LABS: BASO # 0.1 x10^3/uL (0.0-0.2); BASO % 0 % (0-3); EOS # 0.1 x10^3/uL (0.0-0.7); EOS % 1 % (0-3); HEMATOCRIT 49.2 % (39.0-53.0); HEMOGLOBIN 15.8 g/dL (13.0-17.5); LYMPH # 1.8 x10^3/uL (1.0-4.8); LYMPH % 12 % (24-48); MEAN CORPUSCULAR HEMOGLOBIN 27 pg (25-35); MEAN CORPUSCULAR HGB CONC 32 g/dL (31-37); MEAN CORPUSCULAR VOLUME 84 fL (79-100); MONO # 1.8 x10^3/uL (0.0-1.1); MONO % 12 % (0-9); NEUT # 11.2 x10^3uL (1.8-7.7); NEUT % 75 % (31-73); PLATELET COUNT 350 x10^3/uL (140-400); RED BLOOD COUNT 5.87 x10^6/uL (4.30-5.70); RED CELL DISTRIBUTION WIDTH 14.4 % (11.5-14.5); WHITE BLOOD COUNT 14.9 x10^3/uL (4.0-11.0)
[2021-08-11 16:27] LABS: CALCIUM 9.1 mg/dL (8.5-10.1); CREATININE 1.1 mg/dL (0.7-1.3); GFR 88.4; POTASSIUM 4.5 mmol/L (3.5-5.1)
[2021-08-11 16:35] LABS: ALBUMIN 4.3 g/dL (3.4-5.0); ALBUMIN/GLOBULIN RATIO 1.2 (1.0-1.7); TOTAL BILIRUBIN 0.6 mg/dL (0.2-1.0)
[2021-08-11 16:39] LABS: BARBITURATES NEG (NEG); BENZODIAZEPINES POS (NEG); CANNABINOIDS POS (NEG); COCAINE POS (NEG); METHADONE NEG (NEG); OPIATES NEG (NEG); PHENCYCLIDINE NEG (NEG)
[2021-08-11 16:40] LABS: AMPHETAMINE/METHAMPHETAMINE POS (NEG)
[2021-08-11 16:49] LABS: AMORPHOUS SEDIMENT,UR PRESENT /HPF; BACTERIA,URINE 0 /HPF (0-FEW); BILIRUBIN,URINE NEG (NEG); CLARITY,URINE HAZY; COLOR,URINE YELLOW; GLUCOSE,URINE NEG (NEG); NITRITE,URINE NEG (NEG); SQUAMOUS EPITHELIAL CELL,UR OCC /LPF; UROBILINOGEN,URINE 0.2 mg/dL (0.2 mg/dL)
[2021-08-11 19:33] VITALS: BP 134/88
== END 2021-08-11 19:40 | disposition home or self-care (01) ==
LOC: ER 14:52
DX: F19.10 Other psychoactive substance abuse, uncomplicated (principal); F32.9 Major depressive disorder, single episode, unspecified; F17.210 Nicotine dependence, cigarettes, uncomplicated; F20.9 Schizophrenia, unspecified; F43.10 Post-traumatic stress disorder, unspecified; F12.10 Cannabis abuse, uncomplicated; F15.10 Other stimulant abuse, uncomplicated; F14.10 Cocaine abuse, uncomplicated
CPT/HCPCS: 36415; 70450; 71045; 80053; 80307; 81001; 84484; 85025; 93005; 99285; G0480

== ENCOUNTER 2021-08-28 09:09 | Emergency (ER) | payer SELFPAY ==
[~2021-08-28] VITALS: Ht 177.8 cm; Wt 76.5 kg
[2021-08-28] MEDS ORDERED: IV NORMAL SALINE 1,000ML 1,000 ML IV ONE (09:45)
--- NOTE | 2021-08-28 10:02 | PHYS DOC ---
Past History Past Medical History: Depression, Other Additional Past Medical Histor: schizophrenia, psychosis, PTSD (PIPPA TY DO) Past Surgical History: No Surgical History (PIPPA TY DO) Smoking: Cigarettes Alcohol Use: Heavy Drug Use: Cocaine, Marijuana, Methamphetamine (PIPPA TY DO) General Adult EDM: Chief Complaint: SUICIDAL IDEATION HPI: HPI: 41-year-old male presents with hallucinations and suicidal thoughts. Patient admits to being on a drug king the last few days. He would like to get some help. He has been having hallucinations. He has a history of hallucinations but is not on any medications. He is not definitive about type of hallucination. He does not express a specific plan to me for suicide. He has no other specific complaints at this time. (PIPPA TY DO) Review of Systems: Review of Systems: Constitutional: Denies fever or chills Eyes: Denies change in visual acuity HENT: Denies nasal congestion or sore throat Respiratory: Denies cough or shortness of breath Cardiovascular: Denies chest pain or edema GI: Denies abdominal pain, nausea, vomiting, bloody stools or diarrhea : Denies dysuria Musculoskeletal: Denies back pain or joint pain Integument: Denies rash Neurologic: Hallucinations Endocrine: Denies polyuria or polydipsia Lymphatic: Denies swollen glands Psychiatric: Suicidal thoughts (PIPPA TY DO) Current Medications: Current Meds: Current Medications Medications (Trade) Dose Ordered Sig/Beto Start Time Stop Time Status Last Admin Dose Admin Sodium Chloride 1,000 ml @ 1,000 mls/hr 1X ONCE 08/28/21 09:45 08/28/21 09:58 DC (PIPPA TY DO) Allergies: Allergies: Allergies Coded Allergies Type Severity Reaction Last Updated Verified No Known Allergies Allergy Unknown 02/05/21 Yes (PIPPA TY DO) Physical Exam: PE: Constitutional: Well developed, well nourished, no acute distress, non-toxic appearance. [] HENT: Normocephalic, atraumatic, bilateral external ears normal, oropharynx moist, no oral exudates, nose normal. [] Eyes: PERRLA, EOMI, conjunctiva normal, no discharge. [] Neck: Normal range of motion, no tenderness, supple, no stridor. [] Cardiovascular: Heart rate regular rhythm, no murmur [] Lungs & Thorax: Bilateral breath sounds clear to auscultation [] Abdomen: Bowel sounds normal, soft, no tenderness, no masses, no pulsatile masses. [] Skin: Warm, dry, no erythema, no rash. [] Back: No tenderness, no CVA tenderness. [] Extremities: No tenderness, no cyanosis, no clubbing, ROM intact, no edema. [] Neurologic: Alert and oriented X 3, normal motor function, normal sensory function, no focal deficits noted. [] Psychologic: Affect fidgeting and moving around, mood depressed. [] (PIPPA TY DO) Current Patient Data: Vital Signs: Vital Signs Date Time Temp Pulse Resp B/P (MAP) Pulse Ox O2 Delivery O2 Flow Rate FiO2 08/28/21 09:15 98.8 111 14 161/91 (114) 100 Room Air (PIPPA TY DO) EKG: EKG: [] (PIPPA TY DO) Radiology/Procedures: Radiology/Procedures: [] (PIPPA TY DO) Heart Score: C/O Chest Pain: N/A Risk Factors: Risk Factors: DM, Current or recent (<one month) smoker, HTN, HLP, family history of CAD, obesity. Risk Scores: Score 0 - 3: 2.5% MACE over next 6 weeks - Discharge Home Score 4 - 6: 20.3% MACE over next 6 weeks - Admit for Clinical Observation Score 7 - 10: 72.7% MACE over next 6 weeks - Early Invasive Strategies (PIPPA TY DO) Course & Med Decision Making: Course & Med Decision Making Pertinent Labs and Imaging studies reviewed. (See chart for details) The patient's labs are unremarkable. His urine drug screen is positive for methamphetamines, cocaine, marijuana. Urinalysis is negative for infection. His rapid COVID and influenza are negative. The patient is medically stable for behavioral health admission. Behavioral health team saw the patient but he was very sleepy. We had to give him Zyprexa ODT due to agitation. He also got 2 of Ativan earlier. Based on initial evaluation the behavioral team believes the patient likely needs admission possibly involuntary. They will reevaluate him when his Covid PCR test comes back. That is pending at this time. I am signing out the patient to the scene shifter at 1800. [] (PIPPA TY DO) Course & Med Decision Making Patient is a 41-year-old male whose care was transferred to [place] at checkout pending disposition. Patient currently awake alert and oriented stating that he just went on a drug king over the last couple of days and is not suicidal, homicidal or hallucinating. States he has had this happen before and only says things like that when he is intoxicated but does not really mean it. Patient endorsed methamphetamine, cocaine and marijuana. States he was just on a king, trying to get high and does not want to hurt himself. Patient endorses both to myself, and to ED nurses. Patient awake alert and oriented, appropriate, cooperative taking p.o. Requesting discharge information. Discussed substance use and abuse and advised not to take any medications/medicines or drugs and was provided and prescribed by his primary care physician. Advised to call his primary care physician first thing Tuesday morning to discuss ED visit, substance use and abuse and work on a plan of ceasing these activities as they are high risk and can cause sign ificant health issues, disability and . Given patient community resources including contact information for the guidance Center and crisis number. Gave strict return precautions to the emergency department. Patient grateful, verbalized understanding agree with plan of discharge. (MARILOU LARKIN MD) Dragon Disclaimer: Dragon Disclaimer: This electronic medical record was generated, in whole or in part, using a voice recognition dictation system. (PIPPA TY DO) Departure Departure: Impression: Primary Impression: Drug abuse Additional Impression: Suicidal ideation [facility] Condition: IMPROVED Referrals: PCP,NO (PCP) DIANA PELAYO MD Patient Instructions: Substance Abuse-Brief, Suicidal Feelings, How to Help Yourself Additional Instructions: Thank you for coming into the emergency department tonight and allowing us to take care of you. Please read the attached information carefully to go over things that we discussed. As we discussed, please cease using any substances/drugs or medications that has not provided to you by your doctor as these can cause significant risks including significant wrist your health such as anxiety, depression, disability and . We offered to keep you here in the emergency department, for observation, further treatment and admission if necessary but you stated you were feeling well, was not suicidal, homicidal or hallucinating and that you just went on a drug binge or trying to get high and have done this before. You stated that she would follow-up on Tuesday both with your primary care physician and use the resources given to you to discuss your situation with the guidance Center. You are made aware also of the crisis number. We gave you strict return precautions to the emergency department and made aware he can come here at any time if the need arises for any new or concerning symptoms. PIPPA TY DO Aug 28, 2021 10:02 MARILOU LARKIN MD Aug 28, 2021 20:06
[2021-08-28 10:13] LABS: BASO # 0.1 x10^3/uL (0.0-0.2); BASO % 1 % (0-3); EOS # 0.1 x10^3/uL (0.0-0.7); EOS % 1 % (0-3); HEMATOCRIT 47.5 % (39.0-53.0); HEMOGLOBIN 15.3 g/dL (13.0-17.5); LYMPH # 1.7 x10^3/uL (1.0-4.8); LYMPH % 15 % (24-48); MEAN CORPUSCULAR HEMOGLOBIN 27 pg (25-35); MEAN CORPUSCULAR HGB CONC 32 g/dL (31-37); MEAN CORPUSCULAR VOLUME 83 fL (79-100); MONO # 1.2 x10^3/uL (0.0-1.1); MONO % 10 % (0-9); NEUT # 8.7 x10^3uL (1.8-7.7); NEUT % 74 % (31-73); PLATELET COUNT 392 x10^3/uL (140-400); RED BLOOD COUNT 5.71 x10^6/uL (4.30-5.70); RED CELL DISTRIBUTION WIDTH 14.5 % (11.5-14.5); WHITE BLOOD COUNT 11.7 x10^3/uL (4.0-11.0)
[2021-08-28] MEDS ORDERED: LORazepam 1 MG TABLET PO ONE (10:15)
[2021-08-28 10:27] LABS: INFLUENZA A PATIENT NEGATIVE (NEGATIVE); INFLUENZA B PATIENT NEGATIVE (NEGATIVE)
[2021-08-28 10:29] LABS: CALCIUM 8.7 mg/dL (8.5-10.1); CREATININE 1.1 mg/dL (0.7-1.3); GFR 88.4; POTASSIUM 3.8 mmol/L (3.5-5.1)
[2021-08-28 10:35] LABS: ALBUMIN 4.2 g/dL (3.4-5.0); ALBUMIN/GLOBULIN RATIO 1.2 (1.0-1.7); TOTAL BILIRUBIN 0.9 mg/dL (0.2-1.0); TOTAL PROTEIN 7.6 g/dL (6.4-8.2)
[2021-08-28 16:31] LABS: BARBITURATES NEG (NEG); BENZODIAZEPINES NEG (NEG); CANNABINOIDS POS (NEG); COCAINE POS (NEG); METHADONE NEG (NEG); OPIATES NEG (NEG); PHENCYCLIDINE NEG (NEG)
[2021-08-28 16:32] LABS: AMPHETAMINE/METHAMPHETAMINE POS (NEG)
[2021-08-28 16:37] LABS: BACTERIA,URINE 0 /HPF (0-FEW); BILIRUBIN,URINE NEG (NEG); CLARITY,URINE CLEAR; COLOR,URINE YELLOW; GLUCOSE,URINE NEG (NEG); NITRITE,URINE NEG (NEG); RBC,URINE OCC /HPF (0-2); UROBILINOGEN,URINE 0.2 mg/dL (0.2 mg/dL); WBC,URINE 0 /HPF (0-4)
[2021-08-28 20:10] VITALS: BP 142/78
== END 2021-08-28 20:20 | disposition home or self-care (01) ==
LOC: ER 09:09
DX: R45.851 Suicidal ideations (principal); F19.10 Other psychoactive substance abuse, uncomplicated; F32.9 Major depressive disorder, single episode, unspecified; F20.9 Schizophrenia, unspecified; F43.10 Post-traumatic stress disorder, unspecified; F17.210 Nicotine dependence, cigarettes, uncomplicated; F10.20 Alcohol dependence, uncomplicated; F12.10 Cannabis abuse, uncomplicated; F14.10 Cocaine abuse, uncomplicated; F15.10 Other stimulant abuse, uncomplicated; Z20.822 Contact with and (suspected) exposure to COVID-19; Y90.0 Blood alcohol level of less than 20 mg/100 ml
CPT/HCPCS: 80053; 80307; 81001; 85025; 87428; 99285; C9803; U0003

== ENCOUNTER 2021-08-30 21:47 | Emergency (ER) | payer SELFPAY ==
[~2021-08-30] VITALS: Ht 170.2 cm; Wt 74.2 kg
--- NOTE | 2021-08-30 22:17 | PHYS DOC ---
Past History Past Medical History: Depression, Other Additional Past Medical Histor: schizophrenia, psychosis, PTSD Past Surgical History: No Surgical History Smoking: Cigarettes Alcohol Use: Heavy Drug Use: Cocaine, Marijuana, Methamphetamine Adult General HPI HPI Patient is a 41-year-old male, with substance abuse issues using cocaine and methamphetamine who presents to the emergency department with a chief complaint of dehydration and muscle spasms. States he did use yesterday. Denies any recent traumas, travels or illnesses, fevers, chest pain, shortness of breath, a bdominal pain, nausea, vomiting, diarrhea, hematuria or blood in the stool. Denies any known ill contacts. Review of Systems Review of Systems Review of systems otherwise unremarkable except noted in HPI Allergies Allergies Allergies Coded Allergies Type Severity Reaction Last Updated Verified No Known Allergies Allergy Unknown 02/05/21 Yes Physical Exam Physical Exam Constitutional: Well developed, well nourished, no acute distress, non-toxic appearance. [] HENT: Normocephalic, atraumatic, bilateral external ears normal, oropharynx moist, no oral exudates, nose normal. [] Eyes: PERRLA, EOMI, conjunctiva normal, no discharge. [] Neck: Normal range of motion, no tenderness, supple, no stridor. [] Cardiovascular:Heart rate regular rhythm, no murmur [] Lungs & Thorax: Bilateral breath sounds clear to auscultation [] Abdomen: soft, no tenderness, no masses, no pulsatile masses. [] Skin: Warm, dry, no erythema, no rash. [] Extremities: No tenderness, no cyanosis, no clubbing, ROM intact, no edema. [] Neurologic: Alert and oriented X 3, normal motor function, normal sensory function, no focal deficits noted. [] Psychologic: Affect normal, judgement normal, mood normal. [] EKG EKG [] Radiology/Procedures Radiology/Procedures [] Heart Score C/O Chest Pain: No Risk Factors: Risk Factors: DM, Current or recent (<one month) smoker, HTN, HLP, family history of CAD, obesity. Risk Scores: Risk Factors: DM, Current or recent (<one month) smoker, HTN, HLP, family history of CAD, obesity. Course & Med Decision Making Course & Med Decision Making Patient is a 41-year-old male, who uses cocaine and methamphetamine who presents with dehydration and muscle spasm Vital signs nonconcerning. Physical exam noted above. Placed on the monitor with IV access established and IV fluid given Laboratory analysis notable for mild elevation in CK, which is understandable given cocaine and methamphetamine use but no need for hospitalization. Patient feeling better after fluid resuscitation. Discussed all findings with patient. Advised to cease using cocaine and methamphetamine. Advised on diet and hydration as well as taking a One-A-Day vitamin Advised to follow-up with primary care physician tomorrow to set up a follow-up appointment. States he does go to [facility]. Gave return precautions to the ED. Patient grateful, verbalized understanding and agreed with plan of discharge. [] Dragon Disclaimer Dragon Disclaimer This electronic medical record was generated, in whole or in part, using a voice recognition dictation system. Departure Departure: Impression: Primary Impression: Methamphetamine abuse Additional Impression: Cocaine abuse Disposition: HOME / SELF CARE / HOMELESS Condition: STABLE Referrals: PCP,JAZMINE (PCP) DIANA PELAYO MD Patient Instructions: Dehydration, Adult, Substance Abuse-Brief Additional Instructions: Thank you for coming to the emergency department tonight and allowing us to take care of you. Please read the attached information carefully to go over things we discussed. Please cease using any medications or substances not prescribed preposition of these cause serious health risk including severe illness, disability and . Please be sure to eat at least 3 nutritious meals a day, take a One-A-Day vitamin and stay well-hydrated. Please follow-up with a primary care physician to discuss your ED visit and need for follow-up visit. Please come back with new or concerning symptoms as discussed. Problem Qualifiers MARILOU LARKIN MD Aug 30, 2021 22:17
[2021-08-30 22:28] LABS: BASO % 0 % (0-3); EOS # 0.2 x10^3/uL (0.0-0.7); EOS % 2 % (0-3); HEMOGLOBIN 15.9 g/dL (13.0-17.5); LYMPH # 0.7 x10^3/uL (1.0-4.8); LYMPH % 7 % (24-48); MEAN CORPUSCULAR HEMOGLOBIN 27 pg (25-35); MEAN CORPUSCULAR HGB CONC 33 g/dL (31-37); MEAN CORPUSCULAR VOLUME 83 fL (79-100); MONO # 0.7 x10^3/uL (0.0-1.1); MONO % 7 % (0-9); NEUT # 9.1 x10^3uL (1.8-7.7); NEUT % 85 % (31-73); PLATELET COUNT 357 x10^3/uL (140-400); RED BLOOD COUNT 5.82 x10^6/uL (4.30-5.70); RED CELL DISTRIBUTION WIDTH 14.5 % (11.5-14.5); WHITE BLOOD COUNT 10.7 x10^3/uL (4.0-11.0)
[2021-08-30 22:42] LABS: CALCIUM 8.5 mg/dL (8.5-10.1); CREATININE 0.9 mg/dL (0.7-1.3); GFR 111.4; POTASSIUM 4.4 mmol/L (3.5-5.1)
[2021-08-30] MEDS ORDERED: IV RINGERS SOLUTION,LACTATED 1,000 ML IV ONE (23:00)
[2021-08-30 23:20] VITALS: BP 140/88
== END 2021-08-30 23:27 | disposition home or self-care (01) ==
LOC: ER 21:47
DX: F15.10 Other stimulant abuse, uncomplicated (principal); F14.10 Cocaine abuse, uncomplicated; E86.0 Dehydration; M62.838 Other muscle spasm; F17.210 Nicotine dependence, cigarettes, uncomplicated; F12.10 Cannabis abuse, uncomplicated
CPT/HCPCS: 36415; 80048; 82550; 85025; 96360; 99283; J7120